=== PATIENT | female | born 1945 | race Caucasian/White ===

== ENCOUNTER → 2018-11-05 09:53 | Outpatient (CLI) | payer MEDICARE, SELFPAY ==
[2018-10-30 14:51] VITALS: BMI 35.4
--- NOTE | 2018-11-05 09:57 | RAD_ITS ---
STUDY: AIR CONTRAST UPPER GI SERIES REASON FOR EXAM: Female, 73 years old. question hiatal hernia. Pain involving the mid chest/sternal area. Feels like food gets stuck sits in the lower esophagus has pain most of the time. Pain across abdomen and radiates into back. Nausea. X2 weeks. FLUOROSCOPY TIME (if supplied): (3:16) minutes/seconds TECHNIQUE the patient easily and readily swallowed effervescent crystals, various density barium contrast and a 13 mm barium pill. Multiple spot images were obtained during the course of the real-time exam. COMPARISON: None. FINDINGS: The esophageal motility appears normal. There is no stricture, web or diverticulum. There is a large irregular hiatal hernia with associated mucosal irregularity. This is identified on multiple digital spot images. Seen best on image 21. The remainder of the stomach appears unremarkable although suboptimal distention of the body and antrum region diminish sensitivity and specificity for identification of small mucosal lesions.. Contrast readily exited the gastric outlet into unremarkable appearing duodenal bulb and duodenal C-sweep. RAD/Upper GI w/BA Swallow IMPRESSION: Large, irregular hiatal hernia with associated mucosal irregularity. These findings may all be inflammatory. However, a neoplastic process cannot be excluded. Therefore, highly recommend further evaluation with direct visualization. Electronically Signed: Amando Prieto MD at 11:43 EDT , Service support ,
== END ==
LOC: RAD 09:56
PROVIDERS: Family Provider Physician Assistant Medical; PCP Physician Assistant Medical; Referring Provider Surgery; Visit Provider Surgery
DX: R13.10 Dysphagia, unspecified (principal)
CPT/HCPCS: 74246

== ENCOUNTER 2018-11-13 06:56 | Day surgery (SDC) | payer MEDICARE, SELFPAY ==
--- NOTE | 2018-10-30 05:36 | HP_ITS ---
ADDENDUM by Gentry Kerns MD on 10/31/18 at 1551 Addendum entered and electronically signed by Gentry Kerns MD 10/31/18 15:51: October 31, 2018 I now have a disc of the CT scan performed October 24, 2018. On review this demonstrates a moderately large hiatal hernia. In addition there would appear to be some thickening of the distal esophagus. It is difficult to decipher on the CT whether the EG junction is at its normal position but this is suggested. We will pursue the contrasted upper GI study upper scope and stress test as noted. Gentry Kerns M.D., F.A.C.S. Intake Allergies No Known Allergies Allergy (Unverified 10/30/18 14:52) Medications alendronate 70 mg tablet 70 mg PO QWEEK 10/30/18 [History Confirmed 10/30/18] gabapentin 600 mg tablet 600 mg PO TID 10/30/18 [History Confirmed 10/30/18] glimepiride 2 mg tablet 2 mg PO QAM 10/30/18 [History Confirmed 10/30/18] oxybutynin chloride 5 mg tablet 10 mg PO DAILY tab 10/30/18 [History Confirmed 10/30/18] pantoprazole 40 mg tablet,delayed release 40 mg PO DAILY 10/30/18 [History Confirmed 10/30/18] pravastatin 40 mg tablet 40 mg PO DAILY 10/30/18 [History Confirmed 10/30/18] promethazine 25 mg tablet 25 mg PO Q6H PRN 10/30/18 [History Confirmed 10/30/18] sucralfate 1 gram tablet 1 g PO QACHS 10/30/18 [History Confirmed 10/30/18] Assessment & Plan Problems 1. Hiatal hernia with GERD K21.9; K44.9 2. Dyspnea on exertion R06.09 Plan - Gentry Kerns MD 73-year-old female with retrosternal chest pain and symptoms that would correlate with gastroesophageal reflux disease and esophageal dysphasia. In addition she has dyspnea on exertion. Information available currently demonstrates a CT demonstrating a moderately large hiatal hernia. The hiatal hernia could correlate well with reflux disease in partial esophageal obstruction and even possible dyspnea. However I recommend that we obtain several studies in potential anticipation for surgical repair of her hiatal hernia. I would recommend that we obtain a contrast upper GI study. I am recommending a esophagogastroduodenoscopy with possible biopsy and Neri pH probe placement. I am recommending a nuclear medicine stress test. Pending the results of that evaluation I will be able to decipher the length of her torres martinez esophagus and to assess for any significant foreshortening. We might then pursue esophageal manometry. Pending the results of her stress test that she might be a candidate for a laparoscopic repair of her hiatal hernia with consideration for a reflux procedure likely at age 73 a Toupet rather than a full 360 degree [place] wrap. The patient and daughters have had an opting to ask and have questions answered. I very much appreciate the kind opportunity of assisting with her surgical care. We will carefully proceed with investigations as noted. In addition we will obtain records from [facility] and records from [facility]. I hope to obtain the disc of the CT scan CC: WESTON Lopez?C Gentry Kerns M.D., F.A.C.S. Orders Orders: EGD with 48 pH probe 10/30/18 Nuclear Stress Test - Chemical 10/30/18 R06.09 Upper GI w/BA Swallow 10/30/18 R13.10 Medications New: sucralfate (Carafate) 1 g PO QACHS 10/31/18 1551 <Electronically signed by Gentry Kerns MD> Date Gentry Kerns MD cc: Adamaris Vargas ~* Signed ADDENDUM by Gentry Kerns MD on 10/31/18 at 1535 Addendum entered and electronically signed by Gentry Kerns MD 10/31/18 15:35: October 31, 2018 I have records dated August 15, 2018 from [facility]. Serial troponins were normal. White blood cell count was 10.8 with a hemoglobin of 12.4 and hematocrit of 37.7 and a platelet count of 256,000. BUN is 18 and creatinine 1.14. Liver function tests were normal. A rhythm strip suggested sinus rhythm. No EKG was done. Gentry D. Cebul, M.D., F.A.C.S. Intake Allergies No Known Allergies Allergy (Unverified 10/30/18 14:52) Medications alendronate 70 mg tablet 70 mg PO QWEEK 10/30/18 [History Confirmed 10/30/18] gabapentin 600 mg tablet 600 mg PO TID 10/30/18 [History Confirmed 10/30/18] glimepiride 2 mg tablet 2 mg PO QAM 10/30/18 [History Confirmed 10/30/18] oxybutynin chloride 5 mg tablet 10 mg PO DAILY tab 10/30/18 [History Confirmed 10/30/18] pantoprazole 40 mg tablet,delayed release 40 mg PO DAILY 10/30/18 [History Confirmed 10/30/18] pravastatin 40 mg tablet 40 mg PO DAILY 10/30/18 [History Confirmed 10/30/18] promethazine 25 mg tablet 25 mg PO Q6H PRN 10/30/18 [History Confirmed 10/30/18] sucralfate 1 gram tablet 1 g PO QACHS 10/30/18 [History Confirmed 10/30/18] Assessment & Plan Problems 1. Hiatal hernia with GERD K21.9; K44.9 2. Dyspnea on exertion R06.09 Plan - Gentry Kerns MD 73-year-old female with retrosternal chest pain and symptoms that would correlate with gastroesophageal reflux disease and esophageal dysphasia. In addition she has dyspnea on exertion. Information available currently demonstrates a CT demonstrating a moderately large hiatal hernia. The hiatal hernia could correlate well with reflux disease in partial esophageal obstruction and even possible dyspnea. However I recommend that we obtain several studies in potential anticipation for surgical repair of her hiatal hernia. I would recommend that we obtain a contrast upper GI study. I am recommending a esophagogastroduodenoscopy with possible biopsy and Neri pH probe placement. I am recommending a nuclear medicine stress test. Pending the results of that evaluation I will be able to decipher the length of her torres martinez esophagus and to assess for any significant foreshortening. We might then pursue esophageal manometry. Pending the results of her stress test that she might be a candidate for a laparoscopic repair of her hiatal hernia with consideration for a reflux procedure likely at age 73 a Toupet rather than a full 360 degree [place] wrap. The patient and daughters have had an opting to ask and have questions answered. I very much appreciate the kind opportunity of assisting with her surgical care. We will carefully proceed with investigations as noted. In addition we will obtain records from [facility] and records from [facility]. I hope to obtain the disc of the CT scan CC: WESTON Lopez?C Gentry Kerns M.D., F.A.C.S. Orders Orders: EGD with 48 pH probe 10/30/18 Nuclear Stress Test - Chemical 10/30/18 R06.09 Upper GI w/BA Swallow 10/30/18 R13.10 Medications New: sucralfate (Carafate) 1 g PO QACHS 10/31/18 1535 <Electronically signed by Gentry Kerns MD> Date Gentry Kerns MD cc: Adamaris Vargas ~* Signed Intake Vital Signs 10/30/18 Height 5 ft 3 in 10/30/18 Weight: 200 lb 10/30/18 Body Mass Index (BMI) 35.4 10/30/18 Blood Pressure 151/84 H 10/30/18 Blood Pressure Location Rt brachial 10/30/18 Blood Pressure Position Sitting 10/30/18 Respiratory Rate 20 H 10/30/18 Pulse Rate 74 10/30/18 Pulse Source Monitor 10/30/18 Temperature 98.0 F 10/30/18 Temperature Source Oral 10/30/18 Pulse Ox 97 10/30/18 Oxygen Delivery Method room air Intake Visit Reasons: HIATAL HERNIA Medical Safety Director Required: No Is patient in pain?: No Allergies No Known Allergies Allergy (Unverified 10/30/18 14:52) Medications alendronate 70 mg tablet 70 mg PO QWEEK 10/30/18 [History Confirmed 10/30/18] gabapentin 600 mg tablet 600 mg PO TID 10/30/18 [History Confirmed 10/30/18] glimepiride 2 mg tablet 2 mg PO QAM 10/30/18 [History Confirmed 10/30/18] oxybutynin chloride 5 mg tablet 10 mg PO DAILY tab 10/30/18 [History Confirmed 10/30/18] pantoprazole 40 mg tablet,delayed release 40 mg PO DAILY 10/30/18 [History Confirmed 10/30/18] pravastatin 40 mg tablet 40 mg PO DAILY 10/30/18 [History Confirmed 10/30/18] promethazine 25 mg tablet 25 mg PO Q6H PRN 10/30/18 [History Confirmed 10/30/18] sucralfate 1 gram tablet 1 g PO QACHS 10/30/18 [History Confirmed 10/30/18] Is last menstrual period known: No Post menopausal: Yes Patient : No PFSH Medical History Dyspnea on exertion (Acute) Hiatal hernia with GERD (Acute) Abdominal pain (Acute) Acid reflux (Acute) Arthritis (Acute) Depression with anxiety (Acute) Diabetes (Acute) Hiatal hernia (Acute) History of back problems (Acute) Thyroid disease (Acute) Hypertension (Chronic) Surgical History History of laparoscopic cholecystectomy (Acute) Family History Mother Arthritis Diabetes Father Colon cancer Heart disease Social History Smoking Status: Former smoker alcohol intake: never substance use type: does not use HPI HPI HPI: SHERRY KNUTSON, is a 73 F who presents to the office today for HPI HPI Surgical H&P: Yes HPI: SHERRY KNUTSON, is a 73 F who presents to the office today for surgical consultation regarding chest pressure and hiatal hernia. The patient is referred by Adamaris Vargas PA-C and a written copy of my surgical consult recommendations will return to her. 73-year-old female. She she is accompanied by both of her daughters. She describes multiple years of requiring Rolaids to help treat GERD. She states that she has not had a previous esophagogastroduodenoscopy or she does not recall having an upper GI contrast study. Over the past 5 months she has had problems with pain with eating. She states it may be 5 or 6 months ago she was sent to [facility] and had a work-up there to exclude cardiac etiology to retrosternal chest pain. She then also had studies performed at [facility] located in [facility]. This included on October 24, [address] scan of the abdomen and pelvis. We have a written report demonstrating a moderately sized hiatal hernia evidence of prior cholecystectomy no other acute findings. The patient denies fever or chills or sweats. She has had some nausea no vomiting. She has not noticed any bright red blood per rectum or melena. She is had pantoprazole and Carafate added to her treatment regimen. She is a type II diabetic and she used to check her blood sugars daily but for the past several months she is to stop doing so. She claims to have arthritic conditions of her knees. She states that she becomes quite dyspneic going up 1 flight of stairs. When questioned about the cardiac work-up performed at [facility] she does not recall that a stress test was performed ROS General General: No weight change, appetite, fatigue, colon cancer, breast cancer or weakness Endo Endocrine: Yes thyroid disease and diabetes mellitus; no thyroid cancer, Hair loss, heat intolerance or cold intolerance Skin Skin: No rash or changing moles Breast Breast: No left breast lump, right breast lump, nipple discharge, breast pain, abnormal mammogram, abnormal US or breast enlargement Musc Musculoskeletal: Yes back problems and arthritis; no rheumatoid arthritis, gout or joint pain Cardio Cardiovascular: Yes high blood pressure; no murmur, pacemaker, heart disease, atrial fibrillation, heart attack, heart stent, palpitations, shortness of breat with exertion or chest pain Psych Psychiatric: Yes depression and anxiety; no hearing voices Resp Respiratory: Yes shortness of breath, No sleep apnea, No cough, No COPD, No asthma, No emphysema, No wheezing Gastro Gastrointestinal: Yes abdominal pain, No nausea or vomiting, No diarrhea, No constipation, No blood in stool, Yes acid reflux, No hemorrhoids, No ulcers, No gallbladder problem, No black,tarry stools Dangelo Hematologic: No blood thinners, No blood disorders, No bleeding, No anemia, No blood clots Neuro Neurologic: No system reviewed and no additional complaints, except as docu, No as per HPI, No abnormal walking, No abnormal hearing, No abnormal movements, No abnormal speech, No behavioral changes, No burning sensations, No confusion, No seizure-like activity, No unsteadiness, No dizziness, No localized weakness, No frequent falls, No headache(s), No lack of coordination, No loss of vision, No memory loss, No numbness, No other visual disturbances, No radiating pain, No restless legs, No sensory deficit, No fainting, No tingling, No tremor(s), No weakness, No other Exam Const General: cooperative, healthy appearing, comfortable Nutritional Appearance: average body habitus Orientation: alert, awake HENMT Head: normal to inspection Chest Chest palpation & inspection: normal inspection of the chest Breast Palpation: No nipple discharge Resp Effort & Inspection: normal respiratory effort Auscultation: clear to auscultation bilaterally Cardio Rate: regular rate Rhythm: regular rhythm Heart Sounds: no murmurs GI Palpation: soft, no hepatosplenomegaly Auscultation: normal bowel sounds Other: Well-healed surgical incision inferior aspect of umbilicus Musc Cervical Spine: normal cervical lordosis Skin General: no rashes or lesions noted Neuro General: alert, awake Extrem General: no calf tenderness bilaterally Psych Affect: normal affect Assessment & Plan Problems 1. Hiatal hernia with GERD K21.9; K44.9 2. Dyspnea on exertion R06.09 Plan 73-year-old female with retrosternal chest pain and symptoms that would correlate with gastroesophageal reflux disease and esophageal dysphasia. In addition she has dyspnea on exertion. Information available currently demonstrates a CT demonstrating a moderately large hiatal hernia. The hiatal hernia could correlate well with reflux disease in partial esophageal obstruction and even possible dyspnea. However I recommend that we obtain several studies in potential anticipation for surgical repair of her hiatal hernia. I would recommend that we obtain a contrast upper GI study. I am recommending a esophagogastroduodenoscopy with possible biopsy and Neri pH probe placement. I am recommending a nuclear medicine stress test. Pending the results of that evaluation I will be able to decipher the length of her torres martinez esophagus and to assess for any significant foreshortening. We might then pursue esophageal manometry. Pending the results of her stress test that she might be a candidate for a laparoscopic repair of her hiatal hernia with consideration for a reflux procedure likely at age 73 a Toupet rather than a full 360 degree Waleska wrap. The patient and daughters have had an opting to ask and have questions answered. I very much appreciate the kind opportunity of assisting with her surgical care. We will carefully proceed with investigations as noted. In addition we will obtain records from [facility] and records from [facility]. I hope to obtain the disc of the CT scan CC: WESTON Lopez?Owen Kerns M.D., F.A.C.S. Orders Orders: EGD with 48 pH probe Today Nuclear Stress Test - Chemical Today R06.09 Upper GI w/BA Swallow Today R13.10 Medications New: sucralfate (Carafate) 1 g PO QACHS Coding Level of Care Code Comprehensive,moderate Diagnoses Hiatal hernia with GERD K21.9; K44.9 Dyspnea on exertion R06.09 10/30/18 1738 <Electronically signed by Gentry Kerns MD> Date Gentry Kerns MD Patient was reevaluated and there is been no changes
[2018-10-30 14:51] VITALS: BMI 35.4
[2018-11-13] VITALS (8 sets, daily range): BP systolic 119–154; BP diastolic 56–86; PULSE 72–83; RESP 16; TEMP 36.3–36.8; O2SAT 94–99; BMI 34.5
[2018-11-13 07:56] LABS: Bedside Glucose 156 mg/dL (70-110)
--- NOTE | 2018-11-13 08:00 | EGD_PTH ---
PATIENT: SHERRY KNUTSON LOC: EN U#:[id number] AGE/SX: 73/F ROOM: RE11/13/[address]: Dr. Gentry Kerns MD : 1945 BED: DIS: 11/13/2018 SPEC #: [id number] RECD: 11/13/18 09:58 STATUS: ROSCOE AD #: [id number] CHLOÉ: 11/13/18 08:[address]: Gentry Kerns DEPT: SURGICAL PATHOLOGY RECD BY: Feng Redmond ENTERED: 11/13/18 10:29 SP TYPE: EGD BIOPSY OTHR DR: WESTON Lopez Tissues: A - Gastric mucous membrane B - Stomach, NOS C - Esophageal mucous membrane Procedures: PAS Fungus (control) Special Stain Group I Surgery Specimen Level IV HEADER OPERATION: EGD - PH probe (MOD) PRE-OP DIAGNOSIS: Esophageal dysphagia TISSUE SUBMITTED: A - Antrum biopsy for H. pylori, B - Body of stomach biopsies, C - Distal esophageal biopsies MICROSCOPIC DIAGNOSIS A. Gastric antrum, biopsy: Chronic active gastritis. Positive for Helicobacter pylori. B. Gastric body, biopsy: Chronic active gastritis, moderate to severe. Positive for Helicobacter pylori. C. Distal esophagus, biopsy: Focal ulceration with associated fibrinopurulent material, acute and chronic inflammation and granulation. Negative for fungal organisms. Rare strips of benign superficial gastric mucosa. No evidence of intestinal metaplasia. AM:joann 11/14/18 COMMENT A. The results of immunohistochemistry for Helicobacter pylori will be reported separately ([id number]). MICROSCOPIC DESCRIPTION Slides are reviewed. GROSS DESCRIPTION A - Received in fixative is one container labeled with the patient's name and designated antrum biopsy. The specimen consists of one irregular fragment of light vargas soft tissue that measures 0.3 x 0.3 x 0.1 cm. The specimen is totally submitted in one cassette. B - Received in fixative is one container labeled with the patient's name and designated body of stomach biopsy. The specimen consists of one irregular fragment of light vargas soft tissue that measures 0.4 x 0.3 x 0.1 cm. The specimen is totally submitted in one cassette. C - Received in fixative is one container labeled with the patient's name and designated distal esophageal biopsy. The specimen consists of multiple irregular fragments of light vargas soft tissue that in aggregate measure 1.5 x 0.5 x 0.1 cm. The specimen is totally submitted in one cassette. / SJ:rg 11/13/18 TC:2 CPT: 87531 x3, 31739
--- NOTE | 2018-11-13 08:00 | IMM_PTH ---
PATIENT: SHERRY KNUTSON LOC: EN U#:[id number] AGE/SX: 73/F ROOM: RE11/13/[address]: Dr. Gentry Kerns MD : 1945 BED: DIS: 11/13/2018 SPEC #: [id number] RECD: 11/13/18 11:15 STATUS: ROSCOE REDeanna #: [id number] CHLOÉ: 11/13/18 08:[address]: Gentry Kerns DEPT: IMMUNOHISTOCHEMISTRY RECD BY: Marta Montoya ENTERED: 11/13/18 11:15 SP TYPE: IMMUNO OTHR DR: WESTON Lopez Tissues: A - Stomach, NOS Procedures: H Pylori (initial) PHYSICIAN & INSTITUTION [place] [id number] SPECIMEN INFORMATION: Tissue Source: A - Antrum biopsy Clinical Info: Esophageal dysphagia Specimen Number: [id number] CPT code: 49360 METHODOLOGY: Deparaffinized sections of prefer/formalin-fixed tissue or PAP/DQ stained slides are incubated with monoclonal/polyclonal antibodies/oligonucleotide probes. Localization is made via biotin free immunoperoxidase method. Appropriate controls are performed and reacted as expected. Results on target cell population are indicated in the following table: RESULTS: ANTIBODY / CLONE RESULT Block A H Pylori (polyclonal) positive These tests were developed and their performance characteristics determined by [facility]. They may not have been cleared or approved by the U.S. Food and Drug Administration. The FDA has determined that such clearance or approval is not necessary. INTERPRETATION: A. Antrum biopsy: Positive for abundant Helicobacter pylori organisms. AM:joann 11/14/18
--- NOTE | 2018-11-13 08:37 | OP.ENDO_ITS ---
11/13/2018 Noé Lopez Re : Upper GI endoscopy procedure for Cheryl Tapia Dear Sam This procedure was performed on Tuesday, November 13, 2018. My impressions and recommendations are as follows: Impressions : - LA Grade B reflux esophagitis. Biopsied. - Large hiatal hernia. - Z-line irregular, 34 cm from the incisors. - Erythematous mucosa in the antrum. Biopsied. - Normal examined duodenum. Recommendations : - Discharge patient to home. - Resume previous diet. - Continue present medications. - Return to my office in 1 week. My findings are described in the full procedure note, which is enclosed. If I can be of further assistance, please feel free to contact me at Doctor phone number(s): Work: . Sincerely, Gentry Kerns MD 11/13/2018 8:37:26 AM This report has been signed electronically.
== END 2018-11-13 09:31 | disposition home or self-care (01) ==
LOC: EN 06:57 → AC 06:57
PROVIDERS: Family Provider Physician Assistant Medical; PCP Physician Assistant Medical; Referring Provider Surgery; Visit Provider Surgery
PROC: (CPT 43235; principal; 2018-11-13 07:55)
DX: K21.0 Gastro-esophageal reflux disease with esophagitis (principal); K44.9 Diaphragmatic hernia without obstruction or gangrene; K22.8 Other specified diseases of esophagus; K31.89 Other diseases of stomach and duodenum; R07.89 Other chest pain; R13.14 Dysphagia, pharyngoesophageal phase; E11.9 Type 2 diabetes mellitus without complications; R06.09 Other forms of dyspnea; Z79.899 Other long term (current) drug therapy; Z87.891 Personal history of nicotine dependence
CPT/HCPCS: 43239; 82962; 88305; 88312; 88342; 99152; 99153; J7120

== ENCOUNTER → 2018-11-15 06:46 | Outpatient (CLI) | payer MEDICARE, SELFPAY ==
[2018-10-30 14:51] VITALS: BMI 35.4
[2018-11-13 07:35] VITALS: BMI 34.5
--- NOTE | 2018-11-15 14:12 | STRESSREP ---
Stress Test Report Date: 11/15/2018 Procedure: Pharmacologic stress nuclear imaging study Indications: Shortness of breath Consent: Per the patient Procedure: The patient underwent pharmacologic (Regadenoson) evaluation with a peak heart rate of 100 beats per minute (68 %predicted maximal heart rate) and a peak blood pressure of 128/70 mmHg. The baseline ECG demonstrated normal sinus rhythm nonspecific ST-T changes with what appears to be about [address] depression in lead II. EKG during lexiscan infusion revealed no significant change from baseline. EKG post infusion revealed no significant change from baseline [There were no cardiac dysrhythmias pretest, during pharmacologic infusion, or recovery]. [There was no complaint of chest discomfort during pharmacologic infusion or recovery]. The examination was discontinued secondary to completion of protocol. Impression: 1. Lexiscan stress test test is negative for Lexiscan infusion induced EKG changes of ischemia. 2. Lexiscan stress test test negative for Lexiscan infusion induced chest pain. 3. Results of the nuclear portion of the test is as below Myocardial perfusion imaging study: Technique: The patient was injected with 14.1 millicuries of technetium 99m Cardiolite and subsequently rest SPECT Cardiolite nuclear imaging was obtained in the horizontal long, vertical long, and short axis views. The patient underwent pharmacologic (Regadenoson) evaluation with a peak heart rate of 100 beats per minute (68 % percent predicted maximal heart rate) and a peak blood pressure of 128/70 mmHg. The patient was injected with 44.1 millicuries of technetium 99m Cardiolite and subsequently stress SPECT Cardiolite nuclear imaging was obtained in the horizontal long, vertical long, and short axis views. A gated Cardiolite study at peak stress was obtained. Interpretation: Rest and stress SPECT Cardiolite nuclear imaging status post realignment, normalization, and attenuation correction demonstrate normal myocardial radioisotope uptake on the rest and stress images. Gated images reveal no significant regional wall motion abnormalities. The reported LVEF is greater than 70 %. Impression: 1. There is no evidence of significant ischemia or infarction 2. Estimated ejection fraction is greater than 70% This note was generated with [employer] software. It may contain incorrect words, spelling, and punctuation that were not noted in checking the note before signing.
== END ==
LOC: CVS 06:47
PROVIDERS: Family Provider Physician Assistant Medical; PCP Physician Assistant Medical; Referring Provider Surgery; Visit Provider Surgery
DX: R06.09 Other forms of dyspnea (principal); R06.02 Shortness of breath
CPT/HCPCS: 78452; 93017; A9500; A4216; J2785

== ENCOUNTER → 2018-12-10 15:32 | Outpatient (CLI) | payer MEDICARE, SELFPAY ==
[2018-12-10 13:17] VITALS: BMI 34.5
[2018-12-13 10:01] LABS: H.Pylori Breath Test Negative (Negative)
== END ==
PROVIDERS: Family Provider Physician Assistant Medical; PCP Physician Assistant Medical; Referring Provider Surgery; Visit Provider Surgery
DX: A04.8 Other specified bacterial intestinal infections (principal)
CPT/HCPCS: 83013

== ENCOUNTER 2018-12-27 08:47 | Day surgery (SDC) | payer MEDICARE, SELFPAY ==
[2018-12-10 13:17] VITALS: BMI 34.5
[2018-12-27 09:32] VITALS: BP 162/81; PULSE 75; RESP 16; TEMP 36.7; O2SAT 98
--- NOTE | 2019-01-01 04:16 | HP_ITS ---
Intake Vital Signs 01/01/19 Body Mass Index (BMI) 34.5 Intake Visit Reasons: Discuss Sx Chief Complaint: discuss manometry/ breath test Membership Sales Representative Required: No Is patient in pain?: No Allergies No Known Allergies Allergy (Verified 12/10/18 13:03) Medications alendronate 70 mg tablet 70 mg PO QWEEK 10/30/18 [History Confirmed 01/01/19] gabapentin 600 mg tablet 600 mg PO TID 10/30/18 [History Confirmed 01/01/19] glimepiride 2 mg tablet 2 mg PO QAM 10/30/18 [History Confirmed 01/01/19] oxybutynin chloride 5 mg tablet 10 mg PO DAILY tab 10/30/18 [History Confirmed 01/01/19] pravastatin 40 mg tablet 40 mg PO DAILY 10/30/18 [History Confirmed 01/01/19] promethazine 25 mg tablet 25 mg PO Q6H PRN 10/30/18 [History Confirmed 01/01/19] omeprazole 20 mg capsule,delayed release 20 mg PO DAILY #30 cap 12/10/18 [Rx Confirmed 01/01/19] Is last menstrual period known: No Post menopausal: Yes Patient : No PFSH Medical History Dyspnea on exertion (Acute) Hiatal hernia with GERD (Acute) Abdominal pain (Acute) Acid reflux (Acute) Arthritis (Acute) Depression with anxiety (Acute) Diabetes (Acute) Hiatal hernia (Acute) History of back problems (Acute) Thyroid disease (Acute) Hypertension (Chronic) Surgical History History of esophagogastroduodenoscopy (EGD) (Acute ~10/2018) History of laparoscopic cholecystectomy (Acute) Family History Mother Arthritis Diabetes Father Colon cancer Heart disease Social History (Updated 01/01/19 @ 16:16 by Gentry Kerns MD) Smoking Status: Former smoker alcohol intake: never substance use type: does not use HPI HPI HPI: SHERRY KNUTSON, is a 73 F who presents to the office today for HPI HPI Surgical H&P: Yes HPI: SHERRY KNUTSON, is a 73 F who presents to the office today for surgical follow-up regarding her symptomatic large hiatal hernia and erosive esophagitis. On December 27, 2018 she had esophageal manometry performed on this demonstrated normal esophageal manometrics. 10 swallows were analyzed with good bolus clearance. Normal LES relaxation pressure and basal pressure. My previous study results reveal the following: HPI: SHERRY KNUTSON, is a 73 F who presents to the office today for ongoing surgical follow-up regarding severe gastro esophageal reflux disease with focal ulceration fibropurulent material of the distal esophagus on biopsy. That was performed for her on November 13, 2018. H. pylori was positive. In addition she had chronic gastritis. Moderate size hiatal hernia. A Neri pH probe was placed. This was markedly abnormal with a DeMesster score of 54.2 [facility] Imaging Services [address] [place] [id number] Upper GI w/BA Swallow MR#: [id number] Name: SHERRY KNUTSON ANNRep #:[id number] : [id number] 73 From: Amando Prieto MD PCP:Adamaris Vargas Status:REG CLI Study:Upper GI w/BA Swallow Date of Exam:11/05/18 Exam#[id number] Ordering Dr: Gentry Kerns MD STUDY: AIR CONTRAST UPPER GI SERIES REASON FOR EXAM: Female, 73 years old. question hiatal hernia. Pain involving the mid chest/sternal area. Feels like food gets stuck sits in the lower esophagus has pain most of the time. Pain across abdomen and radiates into back. Nausea. X2 weeks. FLUOROSCOPY TIME (if supplied): (3:16) minutes/seconds TECHNIQUE the patient easily and readily swallowed effervescent crystals, various density barium contrast and a 13 mm barium pill. Multiple spot images were obtained during the course of the real-time exam. COMPARISON: None. FINDINGS: The esophageal motility appears normal. There is no stricture, web or diverticulum. There is a large irregular hiatal hernia with associated mucosal irregularity. This is identified on multiple digital spot images. Seen best on image 21. The remainder of the stomach appears unremarkable although suboptimal distention of the body and antrum region diminish sensitivity and specificity for identification of small mucosal lesions.. Contrast readily exited the gastric outlet into unremarkable appearing duodenal bulb and duodenal C-sweep. RAD/Upper GI w/BA Swallow IMPRESSION: Large, irregular hiatal hernia with associated mucosal irregularity. These findings may all be inflammatory. However, a neoplastic process cannot be excluded. Therefore, highly recommend further evaluation with direct visualization. Electronically Signed: Amando Prieto MD at 11:43 EDT , Service support , He has been treated for her positive H. pylori who presents back today for a H. pylori breath test. She also has had a stress test [facility] [address] [place] [address] MR#: [id number] Name: SHERRY KNUTSON ANNRep #:[id number] : 1945 73From: Luiza Green MD Primary Care: Adamaris Vargas PAStatus: REG CLI Referring Dr: Gentry Kerns MDSex: FC Stress Test Report Date: 11/15/2018 Procedure: Pharmacologic stress nuclear imaging study Indications: Shortness of breath Consent: Per the patient Procedure: The patient underwent pharmacologic (Regadenoson) evaluation with a peak heart rate of 100 beats per minute (68 %predicted maximal heart rate) and a peak blood pressure of 128/70 mmHg. The baseline ECG demonstrated normal sinus rhythm nonspecific ST-T changes with what appears to be about [address] depression in lead II. EKG during lexiscan infusion revealed no significant change from baseline. EKG post infusion revealed no significant change from baseline [There were no cardiac dysrhythmias pretest, during pharmacologic infusion, or recovery]. [There was no complaint of chest discomfort during pharmacologic infusion or recovery]. The examination was discontinued secondary to completion of protocol. Impression: 1. Lexiscan stress test test is negative for Lexiscan infusion induced EKG changes of ischemia. 2. Lexiscan stress test test negative for Lexiscan infusion induced chest pain. 3. Results of the nuclear portion of the test is as below Myocardial perfusion imaging study: Technique: The patient was injected with 14.1 millicuries of technetium 99m Cardiolite and subsequently rest SPECT Cardiolite nuclear imaging was obtained in the horizontal long, vertical long, and short axis views. The patient underwent pharmacologic (Regadenoson) evaluation with a peak heart rate of 100 beats per minute (68 % percent predicted maximal heart rate) and a peak blood pressure of 128/70 mmHg. The patient was injected with 44.1 millicuries of technetium 99m Cardiolite and subsequently stress SPECT Cardiolite nuclear imaging was obtained in the horizontal long, vertical long, and short axis views. A gated Cardiolite study at peak stress was obtained. Interpretation: Rest and stress SPECT Cardiolite nuclear imaging status post realignment, normalization, and attenuation correction demonstrate normal myocardial radioisotope uptake on the rest and stress images. Gated images reveal no significant regional wall motion abnormalities. The reported LVEF is greater than 70 %. Impression: 1. There is no evidence of significant ischemia or infarction 2. Estimated ejection fraction is greater than 70% This note was generated with 1Lay software. It may contain incorrect words, spelling, and punctuation that were not noted in checking the note before signing. 11/15/181417<Electronically signed by Luiza Green MD> Date Luiza Green MD CC: Adamaris Vargas; Gentry Kerns MD ~ Date Dictated:11/15/181411 Date Transcribed: 11/15/181411 Media Center Assistant:LETI Signed HPI: SHERRY KNUTSON, is a 73 F who presents to the office today for Assessment & Plan Problems 1. Hiatal hernia with GERD K21.9; K44.9 Plan 73-year-old female. She has a large hiatal hernia with erosive esophagitis and H. pylori positive. She has had a stress test which was not remarkable. Neri PH probe study was markedly abnormal. We will get a breath test to assess for resolution of her H. pylori. I recommended the patient esophageal manometry. Today was a consultative appointment or I reviewed her results. I believe that she should be considered for potential laparoscopic surgical repair of her hiatal hernia and treatment of her reflux. She might be a candidate for toupee procedure pending her manometry. She is aware of the technique, benefit, risks, alternatives. We will have her return to the office subsequent to the manometry. Gentry Kerns M.D., F.A.C.S. Orders Orders: Esophageal Manometry Today K21.9, K44.9 H pylori Breath Test Today A04.8 Medications New: omeprazole 20 mg PO DAILY 30 caps 0RF Coding Level of Care Code Off vis,est,level 2 Diagnoses Hiatal hernia with GERD K21.9; K44.9 ROS General General: No weight change, appetite, fatigue, colon cancer, breast cancer or weakness Endo Endocrine: Yes thyroid disease and diabetes mellitus; no thyroid cancer, Hair loss, heat intolerance or cold intolerance Skin Skin: No rash or changing moles Breast Breast: No left breast lump, right breast lump, nipple discharge, breast pain, abnormal mammogram, abnormal US or breast enlargement Musc Musculoskeletal: Yes back problems and arthritis; no rheumatoid arthritis, gout or joint pain Cardio Cardiovascular: Yes high blood pressure; no murmur, pacemaker, heart disease, atrial fibrillation, heart attack, heart stent, palpitations, shortness of breat with exertion or chest pain Psych Psychiatric: Yes depression and anxiety; no hearing voices Resp Respiratory: Yes shortness of breath, No sleep apnea, No cough, No COPD, No asthma, No emphysema, No wheezing Gastro Gastrointestinal: Yes abdominal pain, No nausea or vomiting, No diarrhea, No constipation, No blood in stool, Yes acid reflux, No hemorrhoids, No ulcers, No gallbladder problem, No black,tarry stools Dangelo Hematologic: No blood thinners, No blood disorders, No bleeding, No anemia, No blood clots Neuro Neurologic: No weakness Exam Const General: cooperative, comfortable, no acute distress Nutritional Appearance: overweight Orientation: alert, awake, oriented x3 HENMT Head: normal to inspection Eyes General: appearance normal, both eyes and all related structures Chest Breast Palpation: No nipple discharge Resp Effort & Inspection: normal respiratory effort Auscultation: clear to auscultation bilaterally Cardio Rate: regular rate Rhythm: regular rhythm Heart Sounds: no murmurs GI Palpation: soft, no hepatosplenomegaly Auscultation: normal bowel sounds Skin General: no rashes or lesions noted Neuro Cognition: normal cognition Extrem General: no calf tenderness bilaterally Psych Affect: normal affect Assessment & Plan Problems 1. Hiatal hernia with GERD K21.9; K44.9 Plan 73-year-old female presents with both of her daughters today. As noted she had esophageal manometry which was normal. She had follow-up H. pylori breath testing which was negative. Her symptoms have been markedly improved with the medical treatment instituted however she is still mostly on a liquid diet because she has difficulties with more solid food causing pressure and some shortness of breath. Her only previous abdominal surgery was a laparoscopic cholecystectomy In detail I have discussed with her the technique, benefit, risk and alternatives of a laparoscopic repair of the large paraesophageal hiatal hernia with Toupet. Pending upon the extent of the suturing the patient is aware of the potential recommendation to place additional mesh support. I would anticipate utilizing bio a. We discussed potential risks of perforation or bleeding or recurrent hernia or post reflux symptoms of bloating or recurrent reflux. She has had an opting to ask and have questions answered. Her ongoing swallowing symptoms and the degree of her in severity of her pain prior to treatment was so severe she is interested in scheduling a proceeding as noted. She has had an opportunity to ask and have questions answered. We will schedule and proceed at her discretion. CC: Adamaris Vargas, FAWN Kerns M.D., F.A.C.S. Coding Level of Care Code Off vis,est,level 2 Diagnoses Hiatal hernia with GERD K21.9; K44.9 01/01/19 2046 <Electronically signed by Gentry hirsch MD> Date _ Gentry Kerns MD
== END 2018-12-27 10:02 | disposition home or self-care (01) ==
LOC: EN 08:48
PROVIDERS: Family Provider Physician Assistant Medical; PCP Physician Assistant Medical; Referring Provider Physician Assistant Medical; Visit Provider Surgery
PROC: F00ZJWZ Instrumental Swallowing and Oral Function Assessment using Swallowing Equipment (ICD-10-PCS; CPT 43235; principal; 2018-12-27 08:55)
DX: K21.9 Gastro-esophageal reflux disease without esophagitis (principal)
CPT/HCPCS: 91010

== ENCOUNTER 2019-01-21 10:24 | Observation (INO) | payer MEDICARE, SELFPAY ==
--- NOTE | 2019-01-01 04:16 | HP_ITS ---
Intake Vital Signs 01/01/19 Body Mass Index (BMI) 34.5 Intake Visit Reasons: Discuss Sx Chief Complaint: discuss manometry/ breath test Twist Maker Required: No Is patient in pain?: No Allergies No Known Allergies Allergy (Verified 12/10/18 13:03) Medications alendronate 70 mg tablet 70 mg PO QWEEK 10/30/18 [History Confirmed 01/01/19] gabapentin 600 mg tablet 600 mg PO TID 10/30/18 [History Confirmed 01/01/19] glimepiride 2 mg tablet 2 mg PO QAM 10/30/18 [History Confirmed 01/01/19] oxybutynin chloride 5 mg tablet 10 mg PO DAILY tab 10/30/18 [History Confirmed 01/01/19] pravastatin 40 mg tablet 40 mg PO DAILY 10/30/18 [History Confirmed 01/01/19] promethazine 25 mg tablet 25 mg PO Q6H PRN 10/30/18 [History Confirmed 01/01/19] omeprazole 20 mg capsule,delayed release 20 mg PO DAILY #30 cap 12/10/18 [Rx Confirmed 01/01/19] Is last menstrual period known: No Post menopausal: Yes Patient : No PFSH Medical History Dyspnea on exertion (Acute) Hiatal hernia with GERD (Acute) Abdominal pain (Acute) Acid reflux (Acute) Arthritis (Acute) Depression with anxiety (Acute) Diabetes (Acute) Hiatal hernia (Acute) History of back problems (Acute) Thyroid disease (Acute) Hypertension (Chronic) Surgical History History of esophagogastroduodenoscopy (EGD) (Acute ~10/2018) History of laparoscopic cholecystectomy (Acute) Family History Mother Arthritis Diabetes Father Colon cancer Heart disease Social History (Updated 01/01/19 @ 16:16 by Gentry Kerns MD) Smoking Status: Former smoker alcohol intake: never substance use type: does not use HPI HPI HPI: SHERRY KNUTSON, is a 73 F who presents to the office today for HPI HPI Surgical H&P: Yes HPI: SHERRY KNUTSON, is a 73 F who presents to the office today for surgical follow-up regarding her symptomatic large hiatal hernia and erosive esophagitis. On December 27, 2018 she had esophageal manometry performed on this demonstrated normal esophageal manometrics. 10 swallows were analyzed with good bolus clearance. Normal LES relaxation pressure and basal pressure. My previous study results reveal the following: HPI: SHERRY KNUTSON, is a 73 F who presents to the office today for ongoing surgical follow-up regarding severe gastro esophageal reflux disease with focal ulceration fibropurulent material of the distal esophagus on biopsy. That was performed for her on November 13, 2018. H. pylori was positive. In addition she had chronic gastritis. Moderate size hiatal hernia. A Neri pH probe was placed. This was markedly abnormal with a DeMesster score of 54.2 [facility] Imaging Services [address] [place] [id number] Upper GI w/BA Swallow MR#: [id number] Name: SHERRY KNUTSON ANNRep #:[id number] : [id number] From: Amando Prieto MD PCP:Adamaris Vargas Status:REG CLI Study:Upper GI w/BA Swallow Date of Exam:11/05/18 Exam#[id number] Ordering Dr: Gentry Kerns MD STUDY: AIR CONTRAST UPPER GI SERIES REASON FOR EXAM: Female, 73 years old. question hiatal hernia. Pain involving the mid chest/sternal area. Feels like food gets stuck sits in the lower esophagus has pain most of the time. Pain across abdomen and radiates into back. Nausea. X2 weeks. FLUOROSCOPY TIME (if supplied): (3:16) minutes/seconds TECHNIQUE the patient easily and readily swallowed effervescent crystals, various density barium contrast and a 13 mm barium pill. Multiple spot images were obtained during the course of the real-time exam. COMPARISON: None. FINDINGS: The esophageal motility appears normal. There is no stricture, web or diverticulum. There is a large irregular hiatal hernia with associated mucosal irregularity. This is identified on multiple digital spot images. Seen best on image 21. The remainder of the stomach appears unremarkable although suboptimal distention of the body and antrum region diminish sensitivity and specificity for identification of small mucosal lesions.. Contrast readily exited the gastric outlet into unremarkable appearing duodenal bulb and duodenal C-sweep. RAD/Upper GI w/BA Swallow IMPRESSION: Large, irregular hiatal hernia with associated mucosal irregularity. These findings may all be inflammatory. However, a neoplastic process cannot be excluded. Therefore, highly recommend further evaluation with direct visualization. Electronically Signed: Amando Prieto MD at 11:43 EDT , Service support , He has been treated for her positive H. pylori who presents back today for a H. pylori breath test. She also has had a stress test [facility] [address] [place] [id number] MR#: [id number] Name: SHERRY KNUTSON ANNRep #:[id number] 73From: Luiza Green MD Primary Care: Adamaris Vargas PAStatus: REG CLI Referring Dr: Gentry Kerns MDSex: FC Stress Test Report Date: 11/15/2018 Procedure: Pharmacologic stress nuclear imaging study Indications: Shortness of breath Consent: Per the patient Procedure: The patient underwent pharmacologic (Regadenoson) evaluation with a peak heart rate of 100 beats per minute (68 %predicted maximal heart rate) and a peak blood pressure of 128/70 mmHg. The baseline ECG demonstrated normal sinus rhythm nonspecific ST-T changes with what appears to be about [address] depression in lead II. EKG during lexiscan infusion revealed no significant change from baseline. EKG post infusion revealed no significant change from baseline [There were no cardiac dysrhythmias pretest, during pharmacologic infusion, or recovery]. [There was no complaint of chest discomfort during pharmacologic infusion or recovery]. The examination was discontinued secondary to completion of protocol. Impression: 1. Lexiscan stress test test is negative for Lexiscan infusion induced EKG changes of ischemia. 2. Lexiscan stress test test negative for Lexiscan infusion induced chest pain. 3. Results of the nuclear portion of the test is as below Myocardial perfusion imaging study: Technique: The patient was injected with 14.1 millicuries of technetium 99m Cardiolite and subsequently rest SPECT Cardiolite nuclear imaging was obtained in the horizontal long, vertical long, and short axis views. The patient underwent pharmacologic (Regadenoson) evaluation with a peak heart rate of 100 beats per minute (68 % percent predicted maximal heart rate) and a peak blood pressure of 128/70 mmHg. The patient was injected with 44.1 millicuries of technetium 99m Cardiolite and subsequently stress SPECT Cardiolite nuclear imaging was obtained in the horizontal long, vertical long, and short axis views. A gated Cardiolite study at peak stress was obtained. Interpretation: Rest and stress SPECT Cardiolite nuclear imaging status post realignment, normalization, and attenuation correction demonstrate normal myocardial radioisotope uptake on the rest and stress images. Gated images reveal no significant regional wall motion abnormalities. The reported LVEF is greater than 70 %. Impression: 1. There is no evidence of significant ischemia or infarction 2. Estimated ejection fraction is greater than 70% This note was generated with Top[employer]eej[employer] software. It may contain incorrect words, spelling, and punctuation that were not noted in checking the note before signing. 11/15/181417<Electronically signed by Luiza Green MD> Date Luiza Green MD CC: Adamaris Vargas; Gentry Kerns MD ~ Date Dictated:11/15/181411 Date Transcribed: 11/15/181411 Printing Services Coordinator:LETI Signed HPI: SHERRY KNUTSON, is a 73 F who presents to the office today for Assessment & Plan Problems 1. Hiatal hernia with GERD K21.9; K44.9 Plan 73-year-old female. She has a large hiatal hernia with erosive esophagitis and H. pylori positive. She has had a stress test which was not remarkable. Neri PH probe study was markedly abnormal. We will get a breath test to assess for resolution of her H. pylori. I recommended the patient esophageal manometry. Today was a consultative appointment or I reviewed her results. I believe that she should be considered for potential laparoscopic surgical repair of her hiatal hernia and treatment of her reflux. She might be a candidate for toupee procedure pending her manometry. She is aware of the technique, benefit, risks, alternatives. We will have her return to the office subsequent to the manometry. Gentry Kerns M.D., F.A.C.S. Orders Orders: Esophageal Manometry Today K21.9, K44.9 H pylori Breath Test Today A04.8 Medications New: omeprazole 20 mg PO DAILY 30 caps 0RF Coding Level of Care Code Off vis,est,level 2 Diagnoses Hiatal hernia with GERD K21.9; K44.9 ROS General General: No weight change, appetite, fatigue, colon cancer, breast cancer or weakness Endo Endocrine: Yes thyroid disease and diabetes mellitus; no thyroid cancer, Hair loss, heat intolerance or cold intolerance Skin Skin: No rash or changing moles Breast Breast: No left breast lump, right breast lump, nipple discharge, breast pain, abnormal mammogram, abnormal US or breast enlargement Musc Musculoskeletal: Yes back problems and arthritis; no rheumatoid arthritis, gout or joint pain Cardio Cardiovascular: Yes high blood pressure; no murmur, pacemaker, heart disease, atrial fibrillation, heart attack, heart stent, palpitations, shortness of breat with exertion or chest pain Psych Psychiatric: Yes depression and anxiety; no hearing voices Resp Respiratory: Yes shortness of breath, No sleep apnea, No cough, No COPD, No asthma, No emphysema, No wheezing Gastro Gastrointestinal: Yes abdominal pain, No nausea or vomiting, No diarrhea, No constipation, No blood in stool, Yes acid reflux, No hemorrhoids, No ulcers, No gallbladder problem, No black,tarry stools Dangelo Hematologic: No blood thinners, No blood disorders, No bleeding, No anemia, No blood clots Neuro Neurologic: No weakness Exam Const General: cooperative, comfortable, no acute distress Nutritional Appearance: overweight Orientation: alert, awake, oriented x3 HENMT Head: normal to inspection Eyes General: appearance normal, both eyes and all related structures Chest Breast Palpation: No nipple discharge Resp Effort & Inspection: normal respiratory effort Auscultation: clear to auscultation bilaterally Cardio Rate: regular rate Rhythm: regular rhythm Heart Sounds: no murmurs GI Palpation: soft, no hepatosplenomegaly Auscultation: normal bowel sounds Skin General: no rashes or lesions noted Neuro Cognition: normal cognition Extrem General: no calf tenderness bilaterally Psych Affect: normal affect Assessment & Plan Problems 1. Hiatal hernia with GERD K21.9; K44.9 Plan 73-year-old female presents with both of her daughters today. As noted she had esophageal manometry which was normal. She had follow-up H. pylori breath testing which was negative. Her symptoms have been markedly improved with the medical treatment instituted however she is still mostly on a liquid diet because she has difficulties with more solid food causing pressure and some shortness of breath. Her only previous abdominal surgery was a laparoscopic cholecystectomy In detail I have discussed with her the technique, benefit, risk and alternatives of a laparoscopic repair of the large paraesophageal hiatal hernia with Toupet. Pending upon the extent of the suturing the patient is aware of the potential recommendation to place additional mesh support. I would anticipate utilizing bio a. We discussed potential risks of perforation or bleeding or recurrent hernia or post reflux symptoms of bloating or recurrent reflux. She has had an opting to ask and have questions answered. Her ongoing swallowing symptoms and the degree of her in severity of her pain prior to treatment was so severe she is interested in scheduling a proceeding as noted. She has had an opportunity to ask and have questions answered. We will schedule and proceed at her discretion. CC: Adamaris Vargas, FAWN Kerns M.D., F.A.C.S. Coding Level of Care Code Off vis,est,level 2 Diagnoses Hiatal hernia with GERD K21.9; K44.9 01/01/19 [id number] <Electronically signed by Gentry hirsch MD> Date _ Gentry Kerns MD I have re-examined the patient. There are no clinical changes since date of exam.
[2019-01-01 14:48] VITALS: BMI 34.5
--- NOTE | 2019-01-17 13:46 | EKG12_ITS ---
Test Reason : PRE OP Blood Pressure : / mmHG Vent. Rate : 086 BPM Atrial Rate : 086 BPM P-R Int : 132 ms QRS Dur : 072 ms QT Int : 356 ms P-R-T Axes : 033 004 -35 degrees QTc Int : 426 ms Normal sinus rhythm ST & T wave abnormality, consider inferior ischemia ST & T wave abnormality, consider anterior ischemia Abnormal ECG Confirmed by CHARBEL ANDREW, HELENA ([id number]), photographic editor TIFFANIE HUDSON ([id number]) on 01/18/2019 1:41:10 PM Referred By: Gentry Kerns Confirmed By:BRITTNEY BARGER MD
[2019-01-17 15:38] LABS: Hemoglobin A1c 7.4 % (4.2-6.3)
[2019-01-17 15:40] LABS: International Normalized Ratio 1.1; Prothrombin Time (Protime)PT. 13.6 SECONDS (11.7-14.9)
[2019-01-17 15:41] LABS: AST(SGOT) 9 U/L (15-37); Alanine Aminotransfer ALT/SGPT 16 U/L (13-56); Albumin, Serum 3.3 g/dL (3.2-5.0); Alkaline Phosphatase 97 U/L (45-117); Anion Gap 11 (5-15); BUN 18 mg/dL (7-18); BUN/Creat Ratio 14.3 RATIO (10-20); Bilirubin, Direct 0.06 mg/dL (0.00-0.30); Calcium,Total 8.3 mg/dL (8.5-10.1); Chloride 109 mmol/L (98-107); Creatinine, Serum 1.26 mg/dL (0.55-1.02); EST Glomerular Filtration Rate 44 mL/min (>60); Est Glom Filt Rate - Afr Amer 53 mL/min (>60); Globulin 3.6 g/dL (2.2-4.2); Glucose 226 mg/dL (74-106); Partial Thromboplast Time 28.1 Seconds (24.1-36.2); Potassium 3.8 mmol/L (3.5-5.1); Protein, Total 6.9 g/dL (6.4-8.2); Sodium Level 141 mmol/L (136-145); Thyroid Stim Hormone (TSH) 2.61 uIU/mL (0.358-3.74)
[2019-01-18 08:48] LABS: Hematocrit 34.5 % (37-47); Mean Corpuscular Hgb 29.9 pg (27.0-32.0); Mean Platelet Vol. 9.1 fl (6.2-12.0)
[2019-01-18 08:53] LABS: Hemoglobin 12.1 g/dL (12.0-15.0); Mean Corpuscular Volume 93.7 fL (81-99); Red Blood Count 4.13 M/mm3 (4.2-5.4); White Blood Count 5.3 K/mm3 (4.4-11.0)
[2019-01-18 08:54] LABS: Mean Corp Hgb Conc 31.3 g/dL (32-36); RBC Distribution Width CV 14.8 % (11.6-14.6); RBC Distribution Width SD 50.9 fl (35.1-43.9)
[2019-01-18 08:55] LABS: Platelet Count 242 K/mm3 (150-450)
[2019-01-21] VITALS (11 sets, daily range): BP systolic 131–168; BP diastolic 65–92; PULSE 61–85; RESP 14–18; TEMP 36.1–36.8; O2SAT 85–99; BMI 37.5
[2019-01-21] MEDS: Cefazolin 2 GM in 0.9% Normal Saline 100 ML IV (07:14)
--- NOTE | 2019-01-21 07:15 | HERN_PTH ---
PATIENT: SHERRY KNUTSON LOC: MS3 U#:[id number] AGE/SX: 74/F ROOM: MS315 RE01/21/[address]: Dr. Gentry Kerns MD : 1945 BED: 1 DIS: 01/22/2019 SPEC #: [id number] RECD: 01/21/19 11:19 STATUS: ROSCOE AGOSTODeanna #: [id number] CHLOÉ: 01/21/19 07:[address]: Gentry Kerns DEPT: SURGICAL PATHOLOGY RECD BY: Feng Redmond ENTERED: 01/21/19 12:35 SP TYPE: Hernia OTHR DR: WESTON Lopez Tissues: HERNIA Procedures: Surgery Specimen Level III HEADER OPERATION: Laparoscopic paraesophageal hiatal hernia repair PRE-OP DIAGNOSIS: Large hiatal hernia with erosive esophagitis and H. pylori positive TISSUE SUBMITTED: Hernia sac MICROSCOPIC DIAGNOSIS Hernia sac: A piece of adipose tissue, consistent with hernia sac, clinically hiatal hernia. Six lymph nodes with reactive changes. DEBRA:joann 01/22/19 MICROSCOPIC DESCRIPTION Slides are reviewed. GROSS DESCRIPTION Received in fixative is one container labeled with the patient's name and designated hernia sac. The specimen consists of an irregular piece of adipose tissue measuring 8 x 5.5 x 1 cm. No mass lesion is identified. All Around Patternmaker sections are submitted in one cassette. / DEBRA:joann 01/21/19 TC:5 CPT: 74307
--- NOTE | 2019-01-21 07:16 | PCM.DC.GS ---
<Gentry Kerns Last Filed: 01/21/19 07:16> Discharge Diet: - - Liquid diet. You may have anything which at body temperature will dissolve. This would include any type of soup. You may utilize nutritional supplements and pudding and yogurt and ice cream and milkshakes. If you tolerate that well you may advance to pasta and rice and cream of wheat or oatmeal. If you tolerate that you may advance to flaky fish and then chicken in very small pieces well chewed Discharge Activity: May Not Drive - for 1 week or while taking narcotic pain medicine. May shower in (days): 1 Lifting Restrictions: 10 pounds Call your doctor if your incision/area has: Continuous Slow Oozing, Sudden Increased Bleeding, Increased Pain/ Swelling, Increased Redness, Foul Smelling Discharge Call your doctor if you observe: Fever of 101 or Higher Suture Line Care: Avoid Pulling/Pushing, Avoid Pinching/Bending Additional Dressing/Incision Instructions:: Change or remove dressing in 3 days. Leave steri-strips in place for 1 week. Allergies/Adverse Reactions: Allergies No Known Allergies Allergy (Verified 01/17/19 12:14) Medications to take at Discharge gabapentin 600 mg tablet 600 mg PO TID 10/30/18 glimepiride 2 mg tablet 2 mg PO QAM 10/30/18 oxybutynin chloride 5 mg tablet 10 mg PO DAILY tab 10/30/18 pravastatin 40 mg tablet 40 mg PO DAILY 10/30/18 promethazine 25 mg tablet 25 mg PO Q6H PRN 10/30/18 omeprazole 20 mg capsule,delayed release 20 mg PO DAILY #30 cap 12/10/18 Hydrocodone Bitart/Apap 5-325 [De Beque 5MG-325MG] 1 tab PO Q6H PRN PRN 3 Days #10 tab 01/21/19 The following prescriptions were given: Hydrocodone Bitart/Apap 5-325 [De Beque 5MG-325MG] 1 tab PO Q6H PRN PRN 3 Days #10 tab PRN Reason: Pain Transmission Status: Received by [facility] Orders to be completed after discharge: 12 Lead EKG [[facility]] Time Frame: 01/17/19, Facility: [facility], Location: Cardiovascular Services Basic Metabolic Profile (BMP) Time Frame: 01/17/19, Facility: [facility], Location: Laboratory CBC-Complete Blood Cnt No Diff Time Frame: 01/17/19, Facility: [facility], Location: Laboratory Hemoglobin A1c Time Frame: 01/17/19, Facility: [facility], Location: Laboratory Liver Profile Time Frame: 01/17/19, Facility: [facility], Location: Laboratory Partial Thromboplast Time Time Frame: 01/17/19, Facility: [facility], Location: Laboratory Prothrombin Time w/INR Time Frame: 01/17/19, Facility: [facility], Location: Laboratory Thyroid Stim Hormone (TSH) Time Frame: 01/17/19, Facility: [facility], Location: Laboratory Primary Care Physician: Adamaris Vargas PA [Primary Care Provider] - Test Results: Test results from this visit will be discussed in further detail at your follow-up appointment, if applicable. Please Follow Up With: Gentry Kerns MD - [phone] When: Call to make an appointment to be seen in about 10 days. <Alesia Grimes - Last Filed: 01/22/19 10:20> Discharge Diet: - - Liquid diet. You may have anything which at body temperature will dissolve. This would include any type of soup. You may utilize nutritional supplements and pudding and yogurt and ice cream and milkshakes. If you tolerate that well you may advance to pasta and rice and cream of wheat or oatmeal after 7 days. If you tolerate that you may advance to flaky fish and then chicken in very small pieces well chewed approximately 14 days after surgery. If at any time you have trouble swallowing, increased pain, or you feel like food is stuck, return to full liquid diet for a day or two. Test Results: Test results from this visit will be discussed in further detail at your follow-up appointment, if applicable. Proposed Discharge Date: 01/22/19
[2019-01-21] MEDS: Bupivacaine Mpf 0.5% 30 ML VIAL (07:44)
[2019-01-21 08:01] LABS: Bedside Glucose 155 mg/dL (70-110)
[2019-01-21] MEDS: Lubricating Jelly 60 GM Tube 30 GM TOPICAL (08:03)
--- NOTE | 2019-01-21 10:27 | OP.PCM_ITS ---
Problem List (1) Hiatal hernia with GERD Status: Acute Report of Operation Date of Procedure: 01/21/19 Pre-Operative Diagnosis: Large hiatal hernia with gastroesophageal reflux disease and esophagitis Post-Operative Diagnosis: Same Surgery/Procedure Performed:: Laparoscopic repair of large hiatal hernia with laparoscopic toupet procedure and esophagogastroduodenoscopy Description of Surgical Findings:: Timeout and informed consent was obtained. 74-year-old placed on the table underwent general endotracheal intubation anesthesia Ancef 2 g given intravenously preoperatively she was then placed in a low lithotomy position a footboard was placed blankets were rolled to add extra protection to the buttock area. She was placed in low lithotomy. In the abdomen sterilely prepped and d raped. A subramanian bag had been used to further support her. Sterile dressings applied Ioban dressing was used to help hold drapes in place. Superior and in the right upper periumbilical area 5-minute trocar was inserted under Visiport technology. The abdomen was insufflated CO2 to a pressure of 10 minutes mercury pressure. Elba trocar was on placed in the left upper quadrant to more fives in the left lateral upper quadrant. Once visualization was achieved the abdomen was active there was fatty omentum. No evidence of any trocar injuries. In the middle of the left lobe of the liver made a 5 Aleman incision in the epigastrium inserted a Dat retractor and use that to help support the liver. The epiphrenic ligament was now inspected the peritoneum was incised with harmonic scalpel no significant amount of stomach was within the chest this was completely dissected free to the right jr of the diaphragm and then over to the left. Stomach is rather fibrofatty and so great care was taken as I got access to the lesser sac and use harmonic scalpel to transect the short gastrics this gave me visualization of the cardia of the stomach which was intrathoracic was able to dissect free the left jr the diaphragm was able to work posterior to the esophagus I then was able to place 1/4 inch Bartolome drain use that for retraction was able to then to complete my circumferential dissection completely around the esophagus for at least 6 to 8cm. In so doing I did visualize an opening in the right pleura. Anesthesia was notified but there were no difficulty throughout the procedure. The esophagus now fully mobilized the posterior vagus nerve carefully protected with the esophagus. I had excellent visualization of the esophageal crura. I approximated that with pledgeted 0 Et hibond sutures. 6 sutures were required. It appeared to have very excellent approximation and very nice placement of the esophagus. I then wrapped the fundus of the stomach that seem to nicely sit position I secured the posterior part of that fundus to the crura with a 0 Ethibond. I then secured the anterior wall of the esophagus to the epiphrenic ligament with the same. I performed a laparoscopic toupee procedure using 2-0 Ethibond. 270 degree wrap to secure the apical stitch to the esophagus epiphrenic ligament and then to the wrap portion of the stomach and in a running fashion secured that for approximately 3 to 4 cm. Laparoscopic is secured there was ties. Then take the fundus of the stomach and secured that to the left portion of the esophagus. I also secured the apical suture there to the epiphrenic ligament excellent positioning of that wrap seem to been achieved. To have a good positional lie slightly more open inferiorly and superiorly. Hemostasis was intact. I then placed a flexible gastroscope. This procedure is found in probation. Scope advanced easily EG junction appear to be in good position and I did not see any suture material there is no bleeding internally took a photograph of the posterior wrap appeared to be intact there was absolutely no air leak intra- abdominally during this procedure. Excess fluid naris aspirated 3. The scope was then withdrawn. The abdomen was reinspected excess fluid administered was aspirated free. The Dat retractor was removed. It is of note that during the dissection the patient did have a hernia sac which I transected free with harmonic scalpel. I placed that in retrieval bag and now at this point of the procedure elected to remove the bag with the a specimen. I repaired that 10 mm trocar site with a simple suture of 0 Vicryl using a GraNee needle. Skin sites have been pre-anesthetized with 0.5% Marcaine. Throughout the procedure total 30 cc was used. Trochars were removed under visualization and the abdomen was allowed to deflate the CO2. Skin edges approximate interrupted 4 Monocryl subdermal stitches. During this part of the procedure the anesthesia did provide positive pressure ventilation. They were able to saturate the patient very easily prior to extubation. Steri-Strips Telfa and OpSite dressings applied. Sponge and instrument and needle counts were reported to the surgeon to be correct. Blood loss was quite minimal. She tolerated the procedure well and was taken to the recovery area in satisfactory condition without apparent complication. Specimens hernia sac. Drains none. Blood loss minimal. Gentry Kerns M.D., F.A.C.S. Type of Anesthesia:: General Anesthesiologist: Narendra Galan
[2019-01-21 11:05] LABS: Bedside Glucose 220 mg/dL (70-110)
[2019-01-21] MEDS: Morphine 2 MG/ML Syringe IV ×2 (12:21→17:45)
[2019-01-21] MEDS: HYDROcodone Bitartrate/Apap 5/325 Tablet PO (15:27)
--- NOTE | 2019-01-21 15:39 | CASEMGMT ---
RN CM Assessment Introduced role of RN CM to patient.? Patient is alert, oriented and able?to participate in RN CM Assessment. ?Care providers, pharmacy, and demographics verified. Presentation: Scheduled Hernia Umbilical Repair w/ Mesh- 01/21/19- Surgery day. Admit Dx: GERD with hiatal hernia and esophagitis Re-Admit: No Barriers/Issues: none PCP: Adamaris Vargas Specialists: Dr Kerns Preferred Pharmacy: [facility] Insurance: [facility] Rx Benefit:?Yes ?LNOK: Dtr Marcy Alberts, dtr Lata Farrao LW/HPOA: Yes both, not on file at [facility], HPOA- Dtr Marcy Alberts, Alt Agent- Dtr Lata Farrao Living Arrangements:?Lives alone in a main wa apartment, no steps to enter. ADL?s: Ambulates with Cane, Independent with ADLs Transportation: Patient drives, Dtr Lata to transport upon DC DME: Shower Chair HHC: None, states if recommended Okay with HHC, No preference on HHC, Ok with [facility] to home. SNF: None Goal: Home vs Dtr Lata's house. Does not know if will have any needs and TBD at this time. Denies any questions/concerns/issues with DCP currently. Aware CM remains available for any emerging needs. DC PLAN: Home Vs Dtr's house. No anticipated needs identified at this time. CM to continue to follow for any emerging needs. ALEJANDRINA Hu
[2019-01-21] MEDS: Gabapentin 600 MG Tablet PO (17:46)
[2019-01-21] MEDS: Lactated Ringers 1,000 ML 50 ML IV (17:48)
[2019-01-21 18:06] LABS: Bedside Glucose 251 mg/dL (70-110)
--- NOTE | 2019-01-21 18:06 | PCM.PN.BLA ---
Progress Note Pt notes discomfort Has been OOB to chair No nausea Taking some water but she is lying quite reclined Will hold on clears as I am not comfortable with her current positioning and risk of aspiration
[2019-01-21] MEDS: Ketorolac 15 MG/ML Vial IV (19:23)
[2019-01-21] MEDS: Pravastatin 40 MG Tablet PO (21:13)
[2019-01-21 22:41] LABS: Bedside Glucose 174 mg/dL (70-110)
[2019-01-22 01:01] VITALS: BP 140/61; PULSE 82; RESP 18; TEMP 36.6; O2SAT 97
[2019-01-22 05:08] VITALS: BP 126/62; PULSE 75; RESP 18; TEMP 36.4; O2SAT 95
[2019-01-22] MEDS: Enoxaparin 40 MG/0.4 ML Syringe SC (05:15)
[2019-01-22 05:25] LABS: Bedside Glucose 136 mg/dL (70-110)
--- NOTE | 2019-01-22 06:01 | PCM.PN.SRG ---
Subjective: Pt feeling much better this a.m., able to ambulate in halls - Physical Exam General: Alert, Oriented x3, Cooperative, No apparent distress Lungs: Clear to auscultation Abdomen: Bowel Sounds Present, Soft, Non Tender Vital Signs Temp Pulse Resp BP Pulse Ox 97.6 F L 75 18 126/62 H 95 01/22/19 05:08 01/22/19 05:08 01/22/19 05:08 01/22/19 05:08 01/22/19 05:08 Oxygen Flow Rate (L/min) 2 Oxygen Delivery Method Room Air Weight: 212 lb 4.882 oz Body Mass Index (BMI) 37.5 Finger Stick Blood Glucose 220 Intake and Output for Last 24 Hours 01/20/19 01/21/19 01/22/19 23:59 23:59 23:59 Intake Total 1863 / 1863 412 / 412 Output Total 750 / 750 400 / 400 Balance 1113 / 1113 12 / 12 POC Glucose 01/22/19 01/21/19 01/21/19 05:18 22:33 17:50 POC Glucose 136 H 174 H 251 H 01/21/19 01/21/19 10:55 06:01 POC Glucose 220 H 155 H Medical Necessity - Tobacco Use Smoking Status: Former smoker Tobacco Use: Non-smoker Assessment/Plan All Active Problems (Last Reviewed 01/01/19 @ 14:47 by Rohini Anderson) Dyspnea on exertion (Acute) Hiatal hernia with GERD (Acute) Excellent progress Will start clears and then fulls and plan discharge after lunch
[2019-01-22 07:45] VITALS: BP 129/62; PULSE 76; RESP 16; TEMP 36.5; O2SAT 99
[2019-01-22] MEDS: Gabapentin 600 MG Tablet PO ×2 (07:50→11:01)
[2019-01-22] MEDS: Pantoprazole Sodium 20 MG Tablet PO (07:51)
[2019-01-22] MEDS: Tolterodine Tartrate 2 MG CAP.SA PO (07:51)
[2019-01-22 11:00] VITALS: BP 126/45; PULSE 81; RESP 16; TEMP 37.1; O2SAT 96
[2019-01-22 11:46] LABS: Bedside Glucose 125 mg/dL (70-110)
== END 2019-01-22 13:10 | disposition home or self-care (01) ==
LOC: SDC 10:46
PROVIDERS: Admitting Provider Surgery; Family Provider Physician Assistant Medical; PCP Physician Assistant Medical; Referring Provider Surgery; Visit Provider Surgery
PROC: (CPT 43325; principal; 2019-01-21 06:55)
DX: K44.9 Diaphragmatic hernia without obstruction or gangrene (principal); K21.0 Gastro-esophageal reflux disease with esophagitis; K29.50 Unspecified chronic gastritis without bleeding; E11.9 Type 2 diabetes mellitus without complications; E78.00 Pure hypercholesterolemia, unspecified; I10 Essential (primary) hypertension; J44.9 Chronic obstructive pulmonary disease, unspecified; Z79.899 Other long term (current) drug therapy; Z87.891 Personal history of nicotine dependence
CPT/HCPCS: 00790; 43281; 36415; 80048; 80076; 82962; 83036; 84443; 85027; 85610; 85730; 88302; 88304; 93005; 96366; 96374; 96375; 96376; 99218; J7120; A4216; G0378; G0379; J2405